=== PATIENT | female | born 1965 | race Caucasian/White ===

== ENCOUNTER 2017-05-05 22:48 | Emergency (ER) | payer OTHER ==
[~2017-05-05] VITALS: Ht 157.5 cm; Wt 56.0 kg
[2017-05-05 23:06] VITALS: TEMP 37; Ht 157.5 cm; Wt 56.0 kg
--- NOTE | 2017-05-05 23:25 | EMERGENCY ROOM VISIT NOTE ---
History Report prepared by Akash: Sharad Felton Under the Supervision of: Dr. Dionte Johnson D.O. First contact with patient: 22:52 Chief Complaint: ALCOHOL OVERDOSE Stated Complaint: ETOH History of Present Illness The patient is a 52 year old female who presents to the Emergency Room by EMS for evaluation of constant alcohol intoxication beginning shortly prior to arrival. Per nursing staff, the patient flew up from [place] three days ago with plans to fly out tomorrow morning The patient had no where to sleep, and was planning on sleeping in the airport until her flight at 6am. She was unable to stay at the airport over night, so she took a taxi to [facility]. She had wine with dinner at [facility]. She was reported to have not agreed to leave [facility] when asked by employees, and police was called. Source of History: patient, nursing staff Onset: Shortly prior to arrival Quality: other (alcohol intoxication) Timing: constant Review of Systems See HPI for pertinent positives and negatives. A total of ten systems were reviewed and were otherwise negative. Past Medical & Surgical Medical Problems: (1) Alcohol abuse (2) Alcohol abuse Family History No pertinent family history stated. Social History Alcohol Use: heavy Current/Historical Medications No Active Prescriptions or Reported Meds Allergies Coded Allergies: Penicillins (Verified Allergy, Intermediate, RASH, 05/05/17) Physical Exam Vital Signs Date Time Temp Pulse Resp B/P (MAP) Pulse Ox O2 Delivery O2 Flow Rate FiO2 05/05/17 23:06 37.0 94 18 119/87 96 Room Air Physical Exam GENERAL: Awake, alert, well-appearing, in no distress. Alcohol on breath. HENT: Normocephalic, atraumatic. Oropharynx unremarkable. EYES: Normal conjunctiva. Sclera non-icteric. NECK: Supple. No nuchal rigidity. FROM. No JVD. RESPIRATORY: Clear to auscultation. CARDIAC: Regular rate, normal rhythm. Extremities warm and well perfused. Pulses equal. ABDOMEN: Soft, non-distended. No tenderness to palpation. No rebound or guarding. No masses. RECTAL: Deferred. MUSCULOSKELETAL: Chest examination reveals no tenderness. The back is symmetrical on inspection without obvious abnormality. There is no CVA tenderness to palpation. No joint edema. LOWER EXTREMITIES: Calves are equal size bilaterally and non-tender. No edema. No discoloration. NEURO: Normal sensorium. No sensory or motor deficits noted. SKIN: No rash or jaundice noted. Medical Decision & Procedures ED Course 2251: The patient was evaluated in room A9B. A complete history and physical exam was performed. 2309: I reevaluated the patient. Discussed results and discharge instructions: she verbalized understanding and agreement. The patient is ready for discharge. Medical Decision Differential diagnoses include but are not limited to; alcohol intoxication, social service issue, and alcohol abuse. Patient reportedly visiting from [place] states that she was going to stay at the airport until her flank 6 AM. Patient is using high-level words in her conversation with me she is alert responsive is no alteration in mental status she does have a history of alcohol abuse. There are no signs of trauma. Disposition plan is to get her hotel this evening spoke to the nursing staff as well as social service block and case maker regarding this patient's disposition Impression Primary Impression: Alcohol abuse Scribe Attestation The scribe's documentation has been prepared under my direction and personally reviewed by me in its entirety. I confirm that the note above accurately reflects all work, treatment, procedures, and medical decision making performed by me. Departure Information Dispostion Home / Self-Care Prescriptions No Active Prescriptions or Reported Meds Referrals No Doctor, Assigned (PCP) Patient Instructions Alcohol Abuse - [facility], My [facility]
[2017-05-06 00:11] VITALS: BP 96/52; PULSE 102; O2SAT 98
== END 2017-05-06 00:12 | disposition home or self-care (01) ==
LOC: EDBD 22:48 → C.EDA 22:50
DX: F10.129 Alcohol abuse with intoxication, unspecified (principal)